=== PATIENT | female | born 1960 | race Hispanic/Latino ===

== ENCOUNTER 2020-12-04 11:07 | Emergency (ER) | payer MEDICAID ==
[~2020-12-04] VITALS: Ht 167.6 cm; Wt 72.1 kg
[2020-12-04 11:08] VITALS: BP 136/48
[2020-12-04 12:05] LABS: HEMATOCRIT 39.3 % (36-48); MEAN CORPUSCULAR VOLUME 96.6 fL (79-99); PLATELET COUNT (AUTO) 153 K/uL (130-400); RED BLOOD CELL COUNT(AUTO) 4.07 MIL/uL (4.00-5.50); RED CELL DISTRIBUTION WIDTH 12.3 % (11.0-15.5); WHITE BLOOD COUNT (AUTO) 4.8 K/uL (4.8-10.8)
[2020-12-04 12:11] VITALS: BP 124/64
[2020-12-04 12:15] LABS: CREATININE 0.8 mg/dL (0.5-1.5); POTASSIUM 3.6 mmol/L (3.5-5.1)
[2020-12-04 12:20] LABS: ALBUMIN 3.9 g/dL (3.5-5.0); BILIRUBIN,TOTAL 0.5 mg/dL (0.2-1.0)
[2020-12-04 12:49] LABS: PROTHROMBIN TIME 10.9 SEC (9.6-11.6)
[2020-12-04 12:51] LABS: PARTIAL THROMBOPLASTIN TIME 25.7 SEC (26.3-35.5)
[2020-12-04 13:53] LABS: BAND NEUTROPHILS % (MANUAL) 2 % (0-2); EOSINOPHILS % (MANUAL) 5 % (1-6); LYMPHOCYTES % (MANUAL) 38 % (22-44); MAN.DIFF COMMENT-IMPRESSION MANUAL DIFFERENTIAL; MONOCYTES % (MANUAL) 9 % (2-9); PLATELET MORPHOLOGY COMMENT ADEQUATE; SEGMENTED NEUTROPHILS % 46 % (40-70)
== END 2020-12-04 12:50 | disposition home or self-care (01) ==
LOC: EDH 11:07
DX: Z00.00 Encounter for general adult medical examination without abnormal findings (principal); Z90.710 Acquired absence of both cervix and uterus
CPT/HCPCS: 36415; 80053; 85025; 85610; 85730

== ENCOUNTER 2024-06-20 15:30 | Emergency (ER) | payer MEDICAID ==
[~2024-06-20] VITALS: Ht 162.6 cm; Wt 72.6 kg
[2024-06-20] MEDS: acetaMINOPHEN WITH coDEINE 1 TAB TAB PO ONE (17:55)
--- NOTE | 2024-06-20 18:03 | HMCIMG ---
KNEE 4+VWS RT REASON: knee injury, fall COMPARISON: None TECHNIQUE: 3 views were obtained of the right knee. 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 There are no visible fractures in the remaining bone. Soft tissues appear unremarkable. IMPRESSION: 1. No acute finding.
--- NOTE | 2024-06-20 18:04 | HMCIMG ---
FEMUR 2VW RIGHT REASON: pain TECHNIQUE: 4 views were obtained. FINDINGS: There is no evidence of fracture or dislocation. There is no joint effusion. The soft tissues appear unremarkable. There is no evidence of a radiopaque foreign body. There is a knee joint prosthesis in place, hardware appears intact. IMPRESSION: No acute findings.
[2024-06-20] MEDS: dexaMETHasone SOD PHOSPHATE 4 MG/ML 1ML VIAL IM ONE (18:29)
[2024-06-20] MEDS: ketOROlac 60 MG VIAL (30MG/ML) IM ONE (18:29)
--- NOTE | 2024-06-20 18:40 | ERN ---
ED Note History of Present Illness Stated Complaint: FALL, RIGHT KNEE PAIN Chief Complaint: Knee Injury/Swelling Time Seen by MD: 15:40 Time Seen by Midlevel: 15:40 Dictation: 63-year-old female presents to the emergency department per EMS due to reported having sustained a fall at her home today at 7:20 a.m. in which he injured the right knee. Patient states that she was trying to do with the pain believing that no real injury had occurred. However, at this time the pain has been continuous. At this time, she rates the pain as a 10/10. Patient denies having sustained any other type of injury. She states that the pain worsens when she attempts to bear weight on the right leg. Upon initial evaluation, the patient presents with a normal neurovascular examination. Allergies: Coded Allergies: codeine (Unverified Allergy, Intermediate, HIVES, 06/20/24) Past Medical History Past Medical History: Depression Surgical History: Other Surgical History Other: RIGHT KNEE PSYCH History: no pertinent psych hx Family History: DM, HTN Social History: Lives with family RN Note Reviewed/Agreed w/PFSH: Yes Review of System Dictation MS/Extremity: Right knee pain Initial Vital Sign VS Vital Signs Date Time Temp Pulse Resp B/P (MAP) Pulse Ox O2 Delivery O2 Flow Rate FiO2 06/20/24 16:03 98.1 67 20 104/70 99 Room Air 0 06/20/24 16:14 21 Physical Exam Dictation General: awake, alert, NAD Head/Face: Normocephalic, atraumatic Eyes: PERRL, EOMI ENT: Oral mucosa moist Neck: Trachea midline, supple Cardiovascular: RRR, no edema Respiratory: Symmetrical, non-labored Abdomen: Soft, non-tender, non-distended, no guarding. Skin: Warm, dry, good turgor, no rash MS/Extremity: Painful range of motion, swelling and tenderness of the right knee. Normal neurovascular examination Neuro: COAx4, GCS 15, steady gait, Psych: Normal behavior, mood, and affect normal Results (Laboratory/Radiology) X-RAY Comment: X-ray of the right knee and the right female with no cortical anomalies or deformities as interpreted by me. ED Course ED Course Orders Procedure Category Date Status Time Knee 4+Vws Rt RAD 06/20/24 Resulted 15:33 Femur 2vw Right RAD 06/20/24 Resulted 16:05 Acetaminophen With PHA 06/20/24 Complete Codeine (Tylenol-Code 16:30 Ketorolac 60mg/2ml PHA 06/20/24 Complete (Toradol 60mg/2ml) 18:30 Dexamethasone 4mg/Ml PHA 06/20/24 Complete 1ml Vial (Dexametha 18:30 Current Medications Medications (Trade) Dose Ordered Sig/Brittni Route PRN Reason Start Time Stop Time Status Last Admin Dose Admin Acetaminophen/ Codeine Phosphate (TYLenol-coDEINE TAB) 1 tab ONCE ONCE PO 06/20/24 16:30 06/20/24 16:31 DC Dexamethasone Sodium Phosphate (dexaMETHasone 4MG/ML 1ML VIAL) 8 mg ONCE ONCE IM 06/20/24 18:30 06/20/24 18:31 DC 06/20/24 18:29 Ketorolac Tromethamine (toRADol 60MG/ 2ML) 30 mg ONCE ONCE IM 06/20/24 18:30 06/20/24 18:31 DC 06/20/24 18:29 Vital Signs Date Time Temp Pulse Resp B/P (MAP) Pulse Ox O2 Delivery O2 Flow Rate FiO2 06/20/24 20:01 98.1 65 16 106/70 98 Room Air* 0 21 06/20/24 16:14 98.1 67 16 106/70 96 Room Air* 0 21 06/20/24 16:03 98.1 67 20 104/70 99 Room Air 0 Medical Decision Making MDM MDM: Differential diagnosis: Right femur fracture, right patellar fracture, right knee sprain, right thigh sprain. Rationale: Tests considered and ordered secondary to shared decision making include: Previous outside records reviewed: Old ER visits. Risk of complication and/or morbidity or mortality of patient management: None Medications-Per medication reconciliation Need for hospitalization: Patient does not meet criteria for hospitalization. Need for emergency major/minor surgery: No There are no social concerns with this patient. Prescription drug management Prescriptions will include symptomatic care Patient's prior external medical records from other ER visits were reviewed by me as indicated. Prior testing and results from previous visits were reviewed. Prior tests were taken into account with medical decision making and resource utilization, independent historian/historians were used to obtain complete medical history. I independently interpreted the test that were performed, results were reviewed by me and considered findings on radiology if ordered. Medical management and examination interpretation discussions were had by me with other qualified healthcare professionals as indicated for the patient's care. DX & DISP Disposition: Discharge Departure Impression: Primary Impression: Right knee sprain Additional Impression: Muscle strain of right thigh Condition: Stable Referrals: PATEL MCGINNIS MD (PCP) Time of Disposition: 19:56 I performed a substantive portion of the visit. I have reviewed and personally made and approve the management plan that is documented in the notes by myself with KEY/resident. I acknowledged full responsibility for the patient's management plan.: knee injury, fall ORDERING PHYSICIAN: LEONELA MCMANUS DO PROCEDURE: KNEE 4V RT - KNEE 4+VWS RT KNEE 4+VWS RT REASON: knee injury, fall COMPARISON: None TECHNIQUE: 3 views were obtained of the right knee. 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 There are no visible fractures in the remaining bone. Soft tissues appear unremarkable. IMPRESSION: 1. No acute finding. REASON: pain ORDERING PHYSICIAN: MARCO BAXTER PROCEDURE: FEM RT 2 - FEMUR 2VW RIGHT FEMUR 2VW RIGHT REASON: pain TECHNIQUE: 4 views were obtained. FINDINGS: There is no evidence of fracture or dislocation. There is no joint effusion. The soft tissues appear unremarkable. There is no evidence of a radiopaque foreign body. There is a knee joint prosthesis in place, hardware appears intact. IMPRESSION: No acute findings. MARCO BAXTER Jun 20, 2024 18:40 LEONELA MCMANUS DO Jun 21, 2024 07:48
[2024-06-20 20:01] VITALS: BP 106/70; PULSE 65; RESP 16; TEMP 98.1; O2SAT 98
== END 2024-06-20 20:05 | disposition home or self-care (01) ==
LOC: EDH 15:30
DX: S83.8X1A Sprain of other specified parts of right knee, initial encounter (principal); S76.811A Strain of other specified muscles, fascia and tendons at thigh level, right thigh, initial encounter; Z88.5 Allergy status to narcotic agent; Z98.890 Other specified postprocedural states; W18.39XA Other fall on same level, initial encounter; Y93.89 Activity, other specified; Y92.89 Other specified places as the place of occurrence of the external cause; Y99.8 Other external cause status
CPT/HCPCS: 99284; 73552; 73564; 96372 ×2; J1100; J1885